=== PATIENT | male | born 1960 | race Caucasian/White ===

== ENCOUNTER 2022-02-15 10:18 | Emergency (ER) | payer BC, SELFPAY ==
[2022-02-15] VITALS (13 sets, daily range): BP systolic 110–127; BP diastolic 65–72; PULSE 55–62; RESP 16; TEMP 36.2; O2SAT 94–99
--- NOTE | 2022-02-15 11:42 | W.ED.GENAD ---
Discharge Plan Disposition Patient Disposition: HOME Condition: Improving Discharge Details Clinical Impression: Back pain Primary Care Provider: None,None ED Provider: Jeremias Stringer Home Meds and New Rx's Prescriptions: New diazepam [Valium] 5 mg tablet 5 mg PO TID PRNQty: 10 0RF Discharge Instructions Instructions: Back Pain (ED) Additional Instructions: Valium as directed, this medication may cause drowsiness. [id number] ibuprofen 800 mg every 8 hours for the next 3-5 days. Gentle stretching as tolerated. Over the Tylenol as directed for discomfort as well. Cool and/or warm compresses every 2 hours for 20. Please watch for new or worsening symptoms and return to the ER for any concerns. Lastly, when you return home to [place] contact your primary care provider for outpatient reevaluation, if symptoms persist referral to outpatient MRI, PT, back specialist, etc. may be indicated. Medical Decision Making This is a 61-year-old gentleman, denies significant past medical history, presents to the ER for back pain. He states yesterday he was reaching up overhead to cut some brush when he felt a twinge in his lower back. This is happened previously and typically with resting, modifying his activity, [id number] medication he can tolerate the discomfort however today it became too severe with spasms. He denies fever, chest pain, shortness of breath, abdominal pain, nausea, vomiting, bowel or bladder incontinence, radiation down his legs past either buttock. Patient reports that he drove up to his camper yesterday from [place] and felt as though he urinated less than he typically would but this was prior to any of the discomfort he was feeling in his back. He denies any urinary incontinence, retention, dysuria, hematuria, urgency, or inability to empty his bladder. He denies numbness, tingling, weakness. Obtained a pre and post void urine bladder scan, prevoid 116, postvoid 0. No saddle paresthesias, no evidence of cauda equina. Clinically this appears to be musculoskeletal in nature but given his urinary symptoms yesterday will obtain urinalysis to assess for potential hematuria, infection, etc. We will also obtain IV access, CBC, CMP and provide IV Toradol and Valium Patient reports that moderate relief with the Valium and Toradol, was able to ambulate steadily to the restroom without assistance. Laboratory values are unremarkable for any obvious emergent process. Urinalysis is also unremarkable. Less likely renal stone. Abdomen is soft, nontender, no pulsatile mass. Pulses equal bilateral extremities. Upon reevaluation patient reports that his pain is much improved and he feels as though this is now manageable at home. He states this feels more typical of his back flareups and that the severe discomfort and spasm has resolved. We discussed disposition, he feels as though he can be discharged safely. I will provide a short term prescription for Valium, but discussed conservative measures, and he will the counter anti-inflammatory medication. He will follow-up with his primary care provider when he returns home to [place] to discuss outpatient follow-up, to referral, MRI, back specialist referral, etc. Patient remains neurologically intact here in the ER. Standard discharge and return precautions were provided. Patient understands, is agreeable to this plan, and has no additional questions or concerns upon discharge. This documentation was generated using [employer] dictation system, please disregard any oddities of phrase or misspellings. Medical Records Medical records reviewed: Yes I reviewed the patient's medical records. Lab Data Lab results reviewed: Yes I reviewed the patient's lab results. Labs: Laboratory Tests Range/Units 02/15/22 02/15/22 02/15/22 11:17 11:17 11:39 WBC (4.4-10.8) 10^3/uL 4.79 RBC (4.36-5.78) 10^6/uL 5.00 Hgb (13.5-17.5) g/dL 15.4 Hct (40.0-50.0) % 47.1 MCV (80-95) fL 94 MCH (27.0-33.0) pg 30.8 MCHC (32.0-36.0) % 32.7 RDW (11.8-14.1) % 12.7 Plt Count (130-400) 10^3/uL 217 MPV (8.0-11.0) fL 10.9 Immature Gran % 0.2 Neutrophils % 72.4 Lymphocytes % 18.0 Monocytes % 8.4 Eosinophils % 0.6 Basophils % 0.4 Nucleated RBC % (0.0-0.3) % 0.0 Absolute Neutrophils (1.2-6.7) 10^3/uL 3.47 Absolute Lymphocytes (1.2-3.4) 10^3/uL 0.86 L Absolute Monocytes (0.1-0.8) 10^3/uL 0.40 Absolute Eosinophils (0.0-0.7) 10^3/uL 0.03 Absolute Basophils (0.0-0.2) 10^3/uL 0.02 Sodium (136-145) mmol/L 140 Potassium (3.5-5.1) mmol/L 4.2 Chloride (98-107) mmol/L 105 Carbon Dioxide (21.0-32.0) mmol/L 29.9 Anion Gap (3-11) mmol/L 5.1 BUN (7-18) mg/dL 21 H Creatinine (0.70-1.30) mg/dL 1.1 Estimated GFR/1.73 m2 (mL/min/1.73m2) >= 60.00 Glucose (74-106) mg/dL 103 Calcium (8.5-10.1) mg/dL 8.8 Total Bilirubin (0.2-1.0) mg/dL 0.6 AST (15-37) U/L 16 ALT (16-63) U/L 26 Alkaline Phosphatase (46-116) U/L 65 Total Protein (6.4-8.2) g/dL 7.2 Albumin (3.4-5.0) g/dL 4.1 Lipase (73-393) U/L 104 Urine Color (Yellow) Yellow Urine Clarity (Clear) Clear Urine pH (5-8) 7.0 Ur Specific [place] (1.005-1.025) 1.025 Urine Protein (Negative) mg/dL Negative Urine Ketones (Negative) mg/dL Negative Urine Blood (Negative) Negative Urine Nitrite (Negative) Negative Urine Bilirubin (Negative) Negative Urine Urobilinogen (Up TO 0.2) EU/dL 0.2 Ur Leukocyte Esterase (Negative) Negative Urine Glucose (Negative) mg/dL Negative HPI General Mode of arrival: ambulatory. Date/Time Provider Initiated Documentation: 02/15/22 10:39. Limitations to Documentation: no limitations. Information obtained by: patient. History of Present Illness 61 year old M presents to the emergency department with the chief complaint of back pain / spasm , described as severe and similar to prior episodes, with intensity rated at 9. Quality is described as aching (spasm), and is localized to the back. Patient reports no radiation. Patient started experiencing this day(s) (1) and it has been constant. Immobilization improves symptom(s), Movement worsens symptoms . Patient notes no other symptoms.. Patient did receive the following treatments prior to arrival, NSAID Related Data Home Medications Medication Instructions Recorded Confirmed diazepam 5 mg tablet (Valium) 5 mg PO TID PRN #10 tabs 02/15/22 Previous Rx's Medication Instructions Recorded diazepam 5 mg tablet (Valium) 5 mg PO TID PRN #10 tabs 02/15/22 Allergies Allergy/AdvReac Type Severity Reaction Status Date / Time No Known Allergies Allergy Unverified 02/15/22 10:34 General Stated Complaint: Nk/Back Pain VISHNU: 4 Review of Systems Constitutional Constitutional: Denies fever(s) and Denies weakness ENT Ears, Nose, Mouth, and Throat: Denies neck pain Cardiovascular Cardiovascular: Denies chest pain and Denies dyspnea Respiratory Respiratory: Denies cough and Denies dyspnea Gastrointestinal Gastrointestinal: Denies abdominal pain, Denies fecal incontinence, Denies nausea and Denies vomiting Genitourinary Genitourinary: Denies hematuria, Denies dysuria and Denies urinary incontinence Musculoskeletal Musculoskeletal: Reports back pain, Denies neck pain, Denies numbness, Reports stiffness and Denies tingling Integumentary/Breasts Skin/Breast: Denies rash Neurologic Neurologic: Denies numbness, Denies tingling and Denies weakness PFSH All Active Problems Back pain (Acute) Social History Smoking/Tobacco Use Status: Never Smoking risk assessment performed?: Yes Substance use type: does not use Exam Const General: cooperative, healthy appearing, no acute distress and other (Appears uncomfortable especially with movement) Orientation: alert and awake [facility] Head: normal to inspection, normocephalic and atraumatic Eyes General: appearance normal, both eyes and all related structures Conjunctivae: conjunctivae normal Neck Neck: normal visual inspection, full ROM, trachea midline and supple Resp Effort & Inspection: normal respiratory effort and able to speak in complete sentences Auscultation: clear to auscultation bilaterally Cardio Rate: regular rate Rhythm: regular rhythm GI Inspection: normal to inspection Palpation: soft, not firm, no guarding, no pulsatile masses and nontender Auscultation: normal bowel sounds Back/Spine/Pelvis Back: no CVA tenderness and back tenderness Thoracic/Lumbar Spine: thoraco-lumbar spasm (Lumbar bilateral paravertebral) and straight leg raise positive (Right leg 5 degrees, left leg 10) Skin General skin exam: no rashes or lesions noted Neuro General: patient alert, patient awake, moves all extremities and no focal motor deficits Cognition: normal cognition Speech: speech normal Gait: antalgic Motor: muscle tone normal throughout and strength 5/5 throughout Sensory Exam: no sensory deficits noted Extrem General: normal to inspection, full ROM, capillary refill normal, no pedal edema and no calf tenderness Psych Appearance: grossly normal Mental Status: mental status grossly normal Course Vital Signs Vital signs: Vital Signs Temperature 36.2 C L 02/15/22 10:28 Pulse 62 02/15/22 10:28 Respiratory Rate 16 02/15/22 10:28 Blood Pressure 127/69 02/15/22 10:28 Pulse Oximetry 99 02/15/22 10:28 Temperature 36.2 C L 02/15/22 10:28 Temperature Source Temporal Artery Scan 02/15/22 10:28 Pulse 62 02/15/22 10:28 Respiratory Rate 16 02/15/22 10:28 Respiratory Effort 02/15/22 10:28 Blood Pressure 127/69 02/15/22 10:28 Blood Pressure Position Sitting 02/15/22 10:28 Pulse Oximetry 99 02/15/22 10:28 Oxygen Delivery Method Room Air 02/15/22 10:28 Oxygen Flow Rate 0 02/15/22 10:28 Pain Level 8 02/15/22 10:34
[2022-02-15 11:50] LABS: Abs Immature Grans 0.01 10^3/uL (0.0-0.06); Absolute Basophil Count 0.02 10^3/uL (0.0-0.2); Absolute Eosinophil Count 0.03 10^3/uL (0.0-0.7); Absolute Lymphocyte Count 0.86 10^3/uL (1.2-3.4); Absolute Neutrophil Count 3.47 10^3/uL (1.2-6.7); Basophils % 0.4; Eosinophils % 0.6; HCT 47.1 % (40.0-50.0); HGB 15.4 g/dL (13.5-17.5); Immature Grans % 0.2; MCH 30.8 pg (27.0-33.0); MCHC 32.7 % (32.0-36.0); MCV 94 fL (80-95); MPV 10.9 fL (8.0-11.0); Monocytes % 8.4; Neutrophils % 72.4; Platelet Count 217 10^3/uL (130-400); RDW 12.7 % (11.8-14.1); RDW-SD 44.2 fL; WBC 4.79 10^3/uL (4.4-10.8)
[2022-02-15 11:51] LABS: Bilirubin Negative (Negative); Blood Negative (Negative); Clarity Clear (Clear); Glucose Negative (Negative); Ketones Negative (Negative); Leukocyte Esterase Negative (Negative); Nitrite Negative (Negative); Specific Gravity 1.025 (1.005-1.025); Urobilinogen 0.2 EU/dL (Up TO 0.2)
[2022-02-15] MEDS: diazePAM 10 MG/2 ML SYR 5 MG IVP (11:54)
[2022-02-15] MEDS: Ketorolac 30 MG/ML VIAL IVP (11:56)
[2022-02-15 12:04] LABS: ALT 26 U/L (16-63); AST 16 U/L (15-37); Albumin 4.1 g/dL (3.4-5.0); Alkaline Phosphatase 65 U/L (46-116); Anion Gap 5.1 mmol/L (3-11); BUN 21 mg/dL (7-18); Bilirubin, Total 0.6 mg/dL (0.2-1.0); CO2 29.9 mmol/L (21.0-32.0); CREATININE 1.1 mg/dL (0.70-1.30); Calcium 8.8 mg/dL (8.5-10.1); Chloride 105 mmol/L (98-107); Glucose 103 mg/dL (74-106); Lipase 104 U/L (73-393); Potassium 4.2 mmol/L (3.5-5.1); Sodium 140 mmol/L (136-145); Total Protein 7.2 g/dL (6.4-8.2)
== END 2022-02-15 13:37 | disposition home or self-care (01) ==
PROVIDERS: Emergency Provider Physician Assistant
DX: M54.50 Low back pain, unspecified (principal)
CPT/HCPCS: 36415; 80053; 83690; 96374; 96375; 99284; 81003; 85025; J1885; J3360